=== PATIENT | female | born 1965 | race Hispanic/Latino ===

== ENCOUNTER → 2024-07-31 | Outpatient (REF) | payer OTHER ==
[~2024-07-31] MED LIST: ASPIRIN EC81 MG PO; LIPITOR10 MG PO; ROSUVASTATIN CA20 MG PO
== END ==
LOC: US 12:05
PROVIDERS: ATTEND Nurse Practitioner Family
DX: E04.2 Nontoxic multinodular goiter (principal)
CPT/HCPCS: 10005; 88172; 88173; 88305